=== PATIENT | female | born 1955 | race Caucasian/White ===

== ENCOUNTER → 2019-12-19 | Outpatient (CLI) | payer OTHER ==
--- NOTE | 2019-12-19 11:35 | Diagnostic Imaging Report ---
INDICATION: Acute bilateral low back pain. TECHNIQUE: Acute onset back pain while moving 5 days ago. CORRELATION STUDY: None. FINDINGS: The lumbar spinal alignment is relatively anatomic. The vertebral body heights are maintained. Various degrees of mild disc space narrowing are suggested, appearing most pronounced at the L5-S1 level. The visualized SI joints are unremarkable. Cholecystectomy clips in the right upper quadrant. IMPRESSION: No radiographic evidence for acute bony abnormality of the lumbar spine. Mild degenerative disc disease. Dictated by: Dictated on workstation # [id number]
== END ==
LOC: RAD FS 10:39
PROVIDERS: ATTEND Nurse Practitioner Family
DX: M51.16 Intervertebral disc disorders with radiculopathy, lumbar region (principal)
CPT/HCPCS: 72100